=== PATIENT | male | born 1940 | race Two or more races ===

== ENCOUNTER 2018-10-12 06:00 | Day surgery (SDC) | payer OTHER ==
[~2018-10-12 06:00] MED LIST: AVALIDE 150-12.1 TA1 PO; CEFADROXIL500 MG PO; PERCOCET 5/3251 TAB PO; SYNTHROID88 MCG PO; XARELTO10 MG PO
== END 2018-10-12 12:25 | disposition home or self-care (01) ==
LOC: CIR.AMB 06:00
DX: M65.841 Other synovitis and tenosynovitis, right hand (principal); M67.843 Other specified disorders of tendon, right hand

== ENCOUNTER 2021-01-14 07:15 | Inpatient (IN) | payer OTHER ==
[~2021-01-14] VITALS: Ht 160 cm; Wt 74.8 kg
[2021-02-05] MEDS ORDERED: AMLODIPINE BESYL5 MG (08:57)
[2021-02-05] MEDS ORDERED: TELMISARTAN40 MG (08:57)
[2021-02-05] MEDS ORDERED: ST. JOSEPH ASPI81 M2 (08:57)
[2021-02-06] MEDS ORDERED: PERCOCET 5-3251 EACH PO (10:02)
[2021-02-06] MEDS ORDERED: DUI500 PO (10:02)
[2021-02-06] MEDS ORDERED: ELIQUIS2.5 MG PO (10:02)
== END 2021-02-06 15:14 | disposition home or self-care (01) | DRG 470 ==
LOC: SURH 01-21 07:15 → O/R 02-04 05:00 → SURH 02-04 07:15
PROVIDERS: ADMIT Orthopaedic Surgery; ATTEND Orthopaedic Surgery
PROC: 0MNN0ZZ Release Right Knee Bursa and Ligament, Open Approach (ICD-10-PCS; 2021-02-04)
PROC: 3E0F7SF Introduction of Other Gas into Respiratory Tract, Via Natural or Artificial Opening (ICD-10-PCS; 2021-02-04)
PROC: 0SRC0J9 Replacement of Right Knee Joint with Synthetic Substitute, Cemented, Open Approach (ICD-10-PCS; principal; 2021-02-04 22:30)
DX: M17.11 Unilateral primary osteoarthritis, right knee (principal); D62 Acute posthemorrhagic anemia; Z20.822 Contact with and (suspected) exposure to COVID-19; M22.11 Recurrent subluxation of patella, right knee; I10 Essential (primary) hypertension; E11.9 Type 2 diabetes mellitus without complications; E03.9 Hypothyroidism, unspecified

== ENCOUNTER 2021-01-29 09:11 | Outpatient (CLI) | payer OTHER | END 2021-01-29 09:23 | disposition home or self-care (01) | LOC: LAB 09:11 | PROVIDERS: ATTEND Orthopaedic Surgery | DX: D89.89 Other specified disorders involving the immune mechanism, not elsewhere classified (principal); Z03.818 Encounter for observation for suspected exposure to other biological agents ruled out ==